=== PATIENT | female | born 1955 | race Caucasian/White ===

== ENCOUNTER 2016-12-01 15:22 | Emergency (ER) | payer BC ==
[2016-12-01] MEDS ORDERED: Ciprofloxacin TAB* 500 MG PO ONE (18:33)
[2016-12-01 18:56] VITALS: BP 151/94
--- NOTE | 2016-12-01 19:00 | UC ---
Complaint Female HPI - HPI Summary HPI Summary: PT WITH H/O RECURRENT UTI C/O 4 WEEKS OF INTERMITTENT DYSURIA, FREQUENCY AND URGENCY. HAS UTI AT LEAST TWICE PER YEAR. OFTEN TRIES TO STAVE OFF INFECTION USING OTC TREATMENTS BUT THIS TIME IT IS NOT WORKING. LAST DOSE AZO WAS 19 HRS AGO. NO FEVER, NO NAUSEA. HAS MILD LOW BACK PAIN. - History Of Current Complaint Chief Complaint: UCGU Stated Complaint: BURNING URINATING,PRESSURE,SPASMS Time Seen by Provider: 12/01/16 18:19 Hx Obtained From: Patient, Family/Guest Relation Officer - SON Onset/Duration: Gradual Onset, Lasting Weeks, Still Present Timing: Intermittent Severity Initially: Moderate Severity Currently: Moderate Pain Intensity: 0 Pain Scale Used: 0-10 Numeric Character: Cramping Aggravating Factor(s): Urination Alleviating Factor(s): Position Associated Signs And Symptoms: Positive: Back Pain - Allergies/Home Medications Allergies/Adverse Reactions: Allergies Allergy/AdvReac Type Severity Reaction Status Date / Time No Known Allergies Allergy Verified 04/29/12 17:19 Home Medications: Home Medications Fluticasone-Salmeterol 250-50* [Advair Diskus 250-50*] 12/01/16 [History] PMH/Surg Hx/FS Hx/Imm Hx - Additional Past Medical History Additional PMH: RECURRENT UTI Respiratory History Of: Reports: Asthma Psychological History Of: Reports: Depression - Surgical History Surgical History: Yes Surgery Procedure, Year, and Place: SUBUTERAL SLING SURGERY. L4/L5 BACK SURGERY - Family History Known Family History: Positive: Hypertension - Social History Alcohol Use: None Substance Use Type: None Smoking Status (MU): Never Smoked Tobacco Review of Systems Constitutional: Negative Respiratory: Negative Cardiovascular: Negative Gastrointestinal: Abdominal Pain Genitourinary: Dysuria, Frequency, Urgency All Other Systems Reviewed And Are Negative: Yes Physical Exam Triage Information Reviewed: Yes Appearance: Well-Appearing, No Pain Distress, Well-Nourished Vital Signs: Initial Vital Signs Temp 98.7 F 12/01/16 16:12 Pulse 86 12/01/16 16:12 Resp 20 12/01/16 16:12 BP 143/76 12/01/16 16:12 Pulse Ox 98 12/01/16 16:12 Vital Signs Reviewed: Yes Eyes: Positive: Conjunctiva Clear ENT: Positive: Hearing grossly normal Neck: Positive: Supple Respiratory: Positive: No respiratory distress, No accessory muscle use Cardiovascular: Positive: Pulses Normal Abdomen Description: Positive: Nontender, Soft. Negative: CVA Tenderness (R), CVA Tenderness (L), Distended, Guarding Musculoskeletal: Positive: No Edema Neurological: Positive: Alert Psychological: Positive: Age Appropriate Behavior Skin: Negative: rashes Diagnostics - Laboratory Diagnostic Studies Completed/Ordered: URINE DIP SP. GR 1.010, 2+ LEUKS, POS NITRITES, TRACE BLOOD Complaint Female Dx - Differential Dx/Diagnosis Provider Diagnoses: UTI Discharge - Discharge Plan Condition: Stable Disposition: HOME Prescriptions: Ciprofloxacin TAB* [Cipro 500 MG TAB*] 500 mg PO BID #9 tab Patient Education Materials: Urinary Tract Infection in Women (ED) Referrals: Conchis Galvan MD [Primary Care Provider] - 2 Weeks Additional Instructions: GIVEN YOUR HISTORY OF RECURRENT UTI CONSIDER FOLLOWING UP WITH UROLOGY. PLEASE DISCUSS WITH YOUR PCP.
[2016-12-04 14:46] LABS: Ureaplasma Source URINE; Ureaplasma parvum PCR Negative; Ureaplasma urealyticum PCR Negative
== END 2016-12-01 18:50 | disposition home or self-care (01) ==
LOC: UCEAST 15:22
DX: N39.0 Urinary tract infection, site not specified (principal); Z87.440 Personal history of urinary (tract) infections; J45.909 Unspecified asthma, uncomplicated
CPT/HCPCS: 81003; 87077; 87086; 87186; 87798; 99202; A9270-GY; G0463

== ENCOUNTER 2017-04-16 18:52 | Emergency (ER) | payer BC ==
[2017-04-16 19:38] LABS: Urine Bacteria Absent (Absent); Urine Bilirubin Negative (Negative); Urine Glucose Negative (Negative); Urine Nitrite Negative (Negative)
[2017-04-16 22:09] VITALS: BP 139/64
[2017-04-16] MEDS ORDERED: Ciprofloxacin TAB* 500 MG PO ONE (22:41)
--- NOTE | 2017-04-17 22:10 | ED ---
Rob Romero Angela, scribed for Angi Willis MD on 04/16/17 at 2236 . GI/ HPI - HPI Summary HPI Summary: This pt is a 61 y/o female presenting to [facility] c/o urinary frequency, urgency, dysuria, and pressure. Pt reports she was seen at [facility] today for a follow up visit after treatment for a UTI and was referred to the ED for lab work. Pt states her urine is dark. She notes that she has had many bladder infections before. She denies nausea, vomiting, chest pain, SOB, swelling in LE, bloody stools, hematuria, blurry vision, double vision, ear ache. Pt reports usually Cipro works to treat her UTI. Pt is being treated for anxiety and depression but she denies SI or HI. PMHx: asthma. - History of Current Complaint Chief Complaint: EDUrogenitalProblems Stated Complaint: DX UTI/URGENT CARE Hx Obtained From: Patient Onset/Duration: Started Days Ago Timing: Lasting Days Pain Intensity: 3 - out of 10 Location of Pain: Diffuse Pain Characteristics: Pressure Associated Signs and Symptoms: Positive: Dysuria, UTI Symptoms - urinary frequency and urgency. Negative: Hematemesis, Back Pain, Nausea, Vomiting, Diarrhea, Fever, Hematuria, Abdominal Pain, Chest Pain - Allergy/Home Medications Allergies/Adverse Reactions: Allergies Allergy/AdvReac Type Severity Reaction Status Date / Time No Known Allergies Allergy Verified 04/16/17 19:06 PMH/Surg Hx/FS Hx/Imm Hx Endocrine/Hematology History: Denies: Hx Diabetes Cardiovascular History: Denies: Hx Hypertension Respiratory History: Reports: Hx Asthma Psychiatric History: Reports: Hx Depression - Surgical History Surgery Procedure, Year, and Place: SUBUTERAL SLING SURGERY. L4/L5 BACK SURGERY Infectious Disease History: No Infectious Disease History: Denies: Traveled Outside the [place] in Last 30 Days - Family History Known Family History: Positive: Hypertension - Social History Alcohol Use: None Substance Use Type: Reports: None Smoking Status (MU): Never Smoked Tobacco Review of Systems Negative: Fever, Chills Negative: Blurred Vision Negative: Ear Ache Negative: Chest Pain Negative: Shortness Of Breath Negative: Vomiting, Nausea, Other - bloody stools Positive: dysuria, frequency, pain - pressure, urgency, other - urine color is dark. Negative: hematuria Negative: Edema Skin: Negative Positive: Headache All Other Systems Reviewed And Are Negative: Yes Physical Exam Triage Information Reviewed: Yes Vital Signs On Initial Exam: Initial Vitals Temp Pulse Resp BP Pulse Ox 98.4 F 72 18 160/80 96 04/16/17 19:03 04/16/17 19:03 04/16/17 19:03 04/16/17 19:03 04/16/17 19:03 Vital Signs Reviewed: Yes Appearance: Positive: Well-Appearing, Well-Nourished Skin: Positive: Warm, Skin Color Reflects Adequate Perfusion, Dry Head/Face: Positive: Normal Head/Face Inspection Eyes: Positive: Normal ENT: Positive: Normal ENT inspection Neck: Positive: Supple, Nontender Respiratory/Lung Sounds: Positive: Clear to Auscultation, Breath Sounds Present Cardiovascular: Positive: Normal, RRR Abdomen Description: Positive: Nontender, Soft. Negative: Distended, Guarding Musculoskeletal: Positive: Normal. Negative: Edema Left, Edema Right Neurological: Positive: Normal, Sensory/Motor Intact, Alert, Oriented to Person Place, Time Psychiatric: Positive: Normal - [place] Coma Scale Coma Scale Total: 15 Diagnostics - Vital Signs Vital Signs Temp Pulse Resp BP Pulse Ox 04/16/17 22:08 61 96 04/16/17 22:01 139/64 04/16/17 19:03 98.4 F 72 18 160/80 96 - Laboratory Lab Results: Lab Results 04/16/17 Range/Units 19:07 Urine Color Graciela Urine Appearance Clear Urine pH 6.0 (5-9) Ur Specific [place] 1.013 (1.010-1.030) Urine Protein Negative (Negative) Urine Ketones Negative (Negative) Urine Blood Negative (Negative) Urine Nitrate Negative (Negative) Urine Bilirubin Negative (Negative) Urine Urobilinogen Negative (Negative) Ur Leukocyte Esterase 2+ H (Negative) Urine WBC (Auto) 3+(>20/hpf) H (Absent) Urine RBC (Auto) 2+(6-10/hpf) H (Absent) Ur Squamous Epith Cells Present H (Absent) Urine Bacteria Absent (Absent) Urine Glucose Negative (Negative) Lab Statement: Any lab studies that have been ordered have been reviewed, and results considered in the medical decision making process. GIGU Course/Dx - Course Assessment/Plan: Pt is a 61 y/o female who presents with urinary frequency, urgency, dysuria, and pressure. Urinalysis is consistent with a UTI. Pt will be discharged with cipro. She is encouraged to follow up with her PCP. - Diagnoses Provider Diagnoses: Urinary tract infection Discharge - Discharge Plan Condition: Stable Disposition: HOME Prescriptions: Ciprofloxacin TAB* [Cipro 500 MG TAB*] 500 mg PO BID #14 tab Forms: *Work Release Referrals: Conchis Galvan MD [Primary Care Provider] - 2 Days Additional Instructions: return if worse or any new symptoms. TAke all medications as previously instructed. it is important to follow up with your primary care physician. The documentation as recorded by the Rob ngo Angela accurately reflects the service I personally performed and the decisions made by , Angi Willis MD.
== END 2017-04-16 22:56 | disposition home or self-care (01) ==
LOC: ED 18:52
DX: N39.0 Urinary tract infection, site not specified (principal); R30.0 Dysuria
CPT/HCPCS: 81003; 81015; 87086; 99282; A9270-GY